=== PATIENT | female | born 2000 | race Caucasian/White ===

== ENCOUNTER 2022-07-19 07:09 | Day surgery (SDC) | payer BC ==
[2022-07-14 10:20] VITALS: BMI 26.6
[~2022-07-19 07:09] MED LIST: DEXAMETHASONE SOD PHOSPHATE 4 MG/ML 1 ML VIAL IV PRN; FAMOTIDINE 20 MG/2 ML VIAL IV PRN; ONDANSETRON 4 MG/2 ML VIAL IVP PRN
[2022-07-19] MEDS ORDERED: HYDROmorphone 0.5 MG/0.5 ML SYRINGE IVP PRN (07:13)
[2022-07-19] MEDS ORDERED: DEXAMETHASONE SOD PHOSPHATE 4 MG/ML 1 ML VIAL IV ONE (07:13)
[2022-07-19] MEDS ORDERED: ONDANSETRON 4 MG/2 ML VIAL IVP ONE (07:13)
[2022-07-19] MEDS ORDERED: LACTATED RINGERS 1,000 ML IV SCH (07:13)
[2022-07-19] MEDS: OXYMETAZOLINE 0.05% NASL SPRAY 1 SPRAY BOTTLE EA NOSTRIL PRN ×5 (07:43→08:03)
[2022-07-19 07:55] LABS: Glucose,Whole Blood 97 mg/dL (70-110)
[2022-07-19] MEDS ORDERED: HYDROCORTISONE SUCCINATE 100 MG/2 ML VIAL IVP ONE (08:05)
[2022-07-19] MEDS ORDERED: MIDAZOLAM 2 MG/2 ML VIAL IVP ONE (08:06)
[2022-07-19] MEDS ORDERED: SUCCINYLCHOLINE CHLORIDE 200 MG/10 ML VIAL IV ONE (08:40)
[2022-07-19] MEDS ORDERED: PROPOFOL 10 MG/ML 20 ML VIAL IV ONE (08:40)
[2022-07-19] MEDS ORDERED: LIDOCAINE 2% INJ 20 MG/ML (2 ML VIAL) ONE (08:40)
[2022-07-19] MEDS ORDERED: MIDAZOLAM 2 MG/2 ML VIAL ONE (08:40)
[2022-07-19] MEDS ORDERED: fentaNYL (PF) 50 MCG/ML 2 ML AMP ONE (08:40)
[2022-07-19] MEDS ORDERED: LIDOCAINE 1%-EPI 1:100,000 20 ML VIAL SUBMUCOSAL ONE (09:02)
[2022-07-19] MEDS ORDERED: BACITRACIN ZINC 500 UNIT/GM OINT 28.4 GM TUBE TOPICAL ONE (09:53)
[2022-07-19 10:11] VITALS: RESP 14; TEMP 97
--- NOTE | 2022-07-19 10:24 | P.OP ---
Date of Procedure: 07/19/22 Preoperative Diagnosis: Deviated nasal septum Inferior turbinate hypertrophy Chronic sinusitis Adenoid hypertrophy Postoperative Diagnosis: Same Procedure(s) Performed: Septoplasty Outfracture and submucous resection of the inferior turbinates Bilateral endoscopic sinus surgery including bilateral maxillary antrostomy with removal of tissue from the maxillary sinuses, bilateral anterior and posterior ethmoidectomy and bilateral sphenoidotomy with removal of tissue from the sphenoid sinuses Adenoidectomyadenoids cauterization Anesthesia: SHAHEED Surgeon: Edgar Martines Estimated Blood Loss (ml): 10 Pathology: other (Nasal septal bone and cartilage and sinus contents) Condition: stable Disposition: PACU Indications for Procedure: The 22-year-old white female whose had difficulties with nasal airway obstruction chronically, recurrent and chronic sinusitis with CT showing ev idence of chronic sinusitis Operative Findings: Septum is deviated bilaterally with bilateral spurs, inferior turbinate hypertrophy bilaterally. Chronic sinusitis involving the maxillary ethmoid and sphenoid sinuses with mucosal thickening throughout these sinuses with small polyps in the maxillary ethmoid and sphenoid sinuses, adenoid hypertrophy moderate obstructing approximately 30% the nasopharynx elected to vaporized with suction cautery Description of Procedure: The patient was brought into the operative suite and placed in a supine po sition. The patient underwent induction of general anesthesia with oral endotracheal intubation without difficulty. The patient was prepped and draped in the usual aseptic fashion with the orbits in the operating field for monitoring to the case and the computed tomography scan was on the computer screen for review throughout the case. 1% lidocaine with 1 :100,000 epinephrine was infused submucosally into both sides of the nasal septum as well as the lateral nasal wall and anterior tips of the middle turbinates. While this was taking vasoconstrictive effect the inferior turbinates were infractured with [place] elevator and partial submucous resection of the inferior turbinates was performed with a portion of the submucosal soft tissue and the inferior turbinate bone removed with Coblation device. The inferior turbinates were then outfractured with the [place] elevator. A left hemitransfixion incision was then made with the mucoperichondrial and mucoperiosteal flap on the left elevated. The bony cartilaginous junction was disarticulated and the mucoperiosteal flap on the right was elevated. Bony nasal septal deformities were removed with Urbano forceps and an inferior cartilaginous strip was removed leaving a full 1.5 cm caudal strut. Checking intranasally this corrected the nasoseptal deformities and the hemitransfixion incision was closed with a running 4-0 chromic suture. Full 0 endoscopic examination is performed bilaterally. Beginning on the left, the middle turbinate was medialized. The maxillary ostium was located with a ballpoint probe and an infundibulotomy was performed followed by uncinectomy. The maxillary antrostomy was enlarged at the expense of the anterior and posterior fontanelle taking care anteriorly not to injure the lacrimal bone. The maxillary sinus was evaluated with 30 and 70 endoscope .[Abnormal appearing tissue was removed from the maxillary sinus]. Anterior and posterior ethmoidectomy were then performed from anterior to pos terior to the level of the skull base. The roof of the anterior ethmoid air cells were then cleaned from posterior to anterior using up-biting Blakesley forceps. Sphenoidotomy was performed under 0 endoscopic examination with #8 suction and straight Blakesley forceps. The sphenoid sinus was then explored with 0 endoscope.[Abnormal tissue was removed from the sphenoid sinus]. Attention was then turned to the right where the procedures were followed as they had been on the left including medialization the middle turbinate infundibulotomy uncinectomy maxillary antrostomy with removal of tissue from the maxillary sinus, anterior and posterior ethmoidectomy and sphenoidotomy with removal of tissue from the sphenoid sinus. There were polyps in the middle meatus bilaterally as well as maxillary sinuses throughout the ethmoid sinuses and sphenoid sinuses. [Nasopore nasal dressing was placed in the middle meatus bilaterally under direct visualization]. Bilateral Agudelo airway splints coated with bacitracin ointment were placed and sutured transseptally with a 4-0 nylon suture. The McIvor mouth gag was placed and nasopharynx examined mirror exam and the adenoids were vaporized with suction cautery. This ablated the adenoids with excellent hemostasis noted and the McIvor mouth gag was removed. The patient was suctioned in oral gastric fashion and was allowed to emerge from general anesthesia having tolerated procedure well and was extubated in the operating suite and transferred to the postoperative recovery area in satisfactory condition.
[2022-07-19] MEDS ORDERED: ACETAMINOPHEN TAB 500 MG TAB ONE (10:59)
[2022-07-19] MEDS ORDERED: ACETAMINOPHEN TAB 500 MG TAB PO ONE (11:01)
[2022-07-19 11:30] VITALS: BP 146/93; PULSE 59
== END 2022-07-19 12:29 | disposition home or self-care (01) ==
LOC: OR 07:09
PROVIDERS: ATTEND Otolaryngology
DX: J34.2 Deviated nasal septum (principal); J34.3 Hypertrophy of nasal turbinates; J35.2 Hypertrophy of adenoids; J32.0 Chronic maxillary sinusitis; J32.2 Chronic ethmoidal sinusitis; J32.3 Chronic sphenoidal sinusitis; J33.9 Nasal polyp, unspecified; J34.89 Other specified disorders of nose and nasal sinuses; K21.9 Gastro-esophageal reflux disease without esophagitis; K58.9 Irritable bowel syndrome, unspecified; G43.909 Migraine, unspecified, not intractable, without status migrainosus; Z79.1 Long term (current) use of non-steroidal anti-inflammatories (NSAID); Z88.1 Allergy status to other antibiotic agents; Z91.012 Allergy to eggs; Z91.018 Allergy to other foods; Z83.3 Family history of diabetes mellitus; Z79.52 Long term (current) use of systemic steroids; Z79.2 Long term (current) use of antibiotics; Z79.899 Other long term (current) drug therapy
CPT/HCPCS: 81025; 30520; 30140; 31267; 31259; 31288; 42831; J2250; J0330; J1100; J1720; J0690; J2405; J3010; J2704; J2001; 88300; 88305